=== PATIENT | male | born 1940 | race Caucasian/White ===

== ENCOUNTER 2022-01-20 14:08 | Inpatient (IN) ==
[2022-01-20] MEDS ORDERED: Iopamidol - 370 500 ML MLS IVP ONE (14:46)
[2022-01-20 15:11] LABS: Bilirubin,Urine Negative (Negative); Blood,Urine Trace-lysed (Negative); Clarity,Urine Clear (Clear); Color,Urine Yellow (Yellow); Glucose,Urine (UA) Normal (Normal); Ketones,Urine Negative (Negative); Leukocyte Esterase,Urine Negative (Negative); Nitrite,Urine Negative (Negative); Protein,Urine Negative (Neg-Trace); Urobilinogen,Urine Normal (Normal)
[2022-01-20 15:11] LABS: Eosinophils % 0.8 %; Hematocrit 30.3 % (37.5-50.1); Hemoglobin 10.6 g/dL (12.9-16.9); Immature Granulocytes % 0.4 % (0-4); Lymphocytes # 0.4 K/mcL (0.6-4.6); Lymphocytes % 8.3 %; Mean Corpuscular Hemoglobin 32.4 pg (28.0-33.3); Mean Corpuscular Volume 92.7 fL (83.0-100.0); Mean Platelet Volume 9.1 fL (9.4-12.4); Monocytes # 0.1 K/mcL (0.0-1.3); Monocytes % 1.9 %; Neutrophils # 4.7 K/mcL (1.6-8.9); Platelet Count 133 K/mcL (140-400); Red Blood Count 3.27 M/mcL (4.19-5.50); Red Cell Distribution Width 12.7 % (11.5-14.5); Segmented Neutrophils % 88.6 %; White Blood Count 5.3 K/mcL (4.3-11.1)
[2022-01-20 15:18] LABS: WBC,Urine 0-3 per hpf (0-3)
[2022-01-20 15:19] LABS: INR 1.2; Prothrombin Time 13.7 Seconds (9.4-12.1)
[2022-01-20 15:22] LABS: Activated Partial Thrombo Time 31.6 Seconds (26.0-36.0)
[2022-01-20 15:30] LABS: Alanine Aminotransferase 73 Units/L (7-52); Albumin 3.6 g/dL (3.5-5.7); Albumin/Globulin Ratio 1.4 (1.1-2.2); Alkaline Phosphatase 123 Units/L (34-104); Aspartate Amino Transferase 59 Units/L (13-39); BUN/Creatinine Ratio 16 (6-26); Blood Urea Nitrogen 55 mg/dL (8-23); Calcium 8.8 mg/dL (8.6-10.3); Carbon Dioxide 25 mEq/L (23-29); Chloride 93 mEq/L (98-107); Globulin 2.6 g/dL (2.4-3.5); Glucose 96 mg/dL (70-105); Osmolality,Calculated 281 (280-300); Potassium 3.7 mEq/L (3.5-5.1); Sodium 128 mEq/L (136-145); Total Protein 6.2 g/dL (6.4-8.9); eGFR For African Americans 20 (> 60); eGFR For Non-African Americans 17 (> 60)
[2022-01-20 15:31] LABS: Troponin I < 0.03 ng/mL (< 0.04)
[2022-01-20] MEDS ORDERED: Naloxone 0.4 MG/ML INJ IVP PRN (17:05)
[2022-01-20] MEDS ORDERED: Ondansetron 4 MG/2 ML VIAL IVP PRN (17:05)
[2022-01-20] MEDS ORDERED: Acetaminophen 325 MG TABLET PO PRN (17:05)
[2022-01-20 17:59] LABS: Calcium 8.6 mg/dL (8.6-10.3); Potassium 3.4 mEq/L (3.5-5.1)
[2022-01-20] MEDS ORDERED: cefTRIAXone 2,000 MG in 0.9 % Sodium Chloride Mini Bag 100 ML IVPB SCH (18:00)
[2022-01-20 20:24] LABS: Calcium 8.4 mg/dL (8.6-10.3); Potassium 3.8 mEq/L (3.5-5.1)
[2022-01-20] MEDS: 0.9 % Sodium Chloride 1,000 ML IVC SCH (21:34)
[2022-01-21 00:16] LABS: Calcium 8.4 mg/dL (8.6-10.3); Potassium 3.7 mEq/L (3.5-5.1)
[2022-01-21] MEDS: Levothyroxine 25 MCG TABLET PO SCH (05:54)
[2022-01-21 07:07] LABS: Hematocrit 27.3 % (37.5-50.1); Hemoglobin 9.6 g/dL (12.9-16.9); Mean Corpuscular HGB Conc 35.2 g/dL (31.6-35.5); Mean Corpuscular Hemoglobin 32.2 pg (28.0-33.3); Mean Corpuscular Volume 91.6 fL (83.0-100.0); Mean Platelet Volume 10.1 fL (9.4-12.4); Platelet Count 118 K/mcL (140-400); Red Blood Count 2.98 M/mcL (4.19-5.50); Red Cell Distribution Width 12.6 % (11.5-14.5); White Blood Count 5.5 K/mcL (4.3-11.1)
[2022-01-21 07:46] LABS: Calcium 8.2 mg/dL (8.6-10.3); Magnesium 1.8 mg/dL (1.6-2.6); Potassium 3.8 mEq/L (3.5-5.1)
[2022-01-21] MEDS: 0.9 % Sodium Chloride 1,000 ML IVC SCH (08:00)
[2022-01-21] MEDS: FLUoxetine 20 MG CAPSULE PO SCH (08:15)
[2022-01-21] MEDS ORDERED: *HR* Methotrexate 2.5 MG TABLET PO SCH (09:00)
[2022-01-21 14:00] LABS: Protein/Creatinine Ratio,Urine 0.15 mg/mg (0.00-0.20); Sodium, Urine 82.4 mEq/L
[2022-01-21] MEDS: Cefdinir 300 MG CAPSULE PO SCH (20:01)
[2022-01-21] MEDS ORDERED: cefTRIAXone 2,000 MG in 0.9 % Sodium Chloride Mini Bag 100 ML IVPB SCH (21:00)
[2022-01-21] MEDS ORDERED: 0.9 % Sodium Chloride 1,000 ML IVC SCH (23:00)
[2022-01-22 03:22] LABS: Bilirubin,Urine Negative (Negative); Blood,Urine Trace-intact (Negative); Clarity,Urine Clear (Clear); Color,Urine Yellow (Yellow); Glucose,Urine (UA) Normal (Normal); Ketones,Urine Negative (Negative); Leukocyte Esterase,Urine Negative (Negative); Nitrite,Urine Negative (Negative); Protein,Urine Negative (Neg-Trace); Specific Gravity,Urine 1.015 (1.010-1.025); Urobilinogen,Urine Normal (Normal)
[2022-01-22 04:50] LABS: Eosinophils % 0.2 %; Hematocrit 28.8 % (37.5-50.1); Hemoglobin 10.1 g/dL (12.9-16.9); Immature Granulocytes % 0.4 % (0-4); Lymphocytes # 0.3 K/mcL (0.6-4.6); Lymphocytes % 5.7 %; Mean Corpuscular HGB Conc 35.1 g/dL (31.6-35.5); Mean Corpuscular Hemoglobin 32.5 pg (28.0-33.3); Mean Corpuscular Volume 92.6 fL (83.0-100.0); Mean Platelet Volume 10.1 fL (9.4-12.4); Monocytes % 0.8 %; Neutrophils # 4.4 K/mcL (1.6-8.9); Platelet Count 117 K/mcL (140-400); Red Blood Count 3.11 M/mcL (4.19-5.50); Red Cell Distribution Width 13.1 % (11.5-14.5); Segmented Neutrophils % 92.9 %; White Blood Count 4.7 K/mcL (4.3-11.1)
[2022-01-22 05:12] LABS: Magnesium 1.6 mg/dL (1.6-2.6); Potassium 3.5 mEq/L (3.5-5.1)
[2022-01-22] MEDS: *HR* Heparin 5,000 UNIT/ML VIAL SQ SCH ×2 (05:51→17:38)
[2022-01-22] MEDS: Levothyroxine 25 MCG TABLET PO SCH (05:51)
[2022-01-22] MEDS: Metoprolol XL (24 HR) Succ 50 MG TAB.ER.24H PO SCH (08:48)
[2022-01-22] MEDS: FLUoxetine 20 MG CAPSULE PO SCH (08:49)
[2022-01-22] MEDS: Megestrol Acetate 400 MG/10 ML UDC PO SCH (13:35)
[2022-01-22] MEDS: 0.9 % Sodium Chloride 1,000 ML IVC SCH (17:39)
[2022-01-22] MEDS: Cefdinir 300 MG CAPSULE PO SCH (20:23)
[2022-01-23] MEDS: Levothyroxine 25 MCG TABLET PO SCH (05:55)
[2022-01-23] MEDS: *HR* Heparin 5,000 UNIT/ML VIAL SQ SCH ×2 (05:55→18:08)
[2022-01-23] MEDS: 0.9 % Sodium Chloride 1,000 ML IVC SCH (07:39)
[2022-01-23 07:50] LABS: Eosinophils # 0.1 K/mcL (0.0-0.6); Eosinophils % 2.2 %; Hematocrit 29.2 % (37.5-50.1); Hemoglobin 10.2 g/dL (12.9-16.9); Immature Granulocytes % 1.1 % (0-4); Lymphocytes # 0.5 K/mcL (0.6-4.6); Lymphocytes % 12.4 %; Mean Corpuscular HGB Conc 34.9 g/dL (31.6-35.5); Mean Corpuscular Hemoglobin 32.3 pg (28.0-33.3); Mean Corpuscular Volume 92.4 fL (83.0-100.0); Mean Platelet Volume 9.8 fL (9.4-12.4); Monocytes # 0.1 K/mcL (0.0-1.3); Monocytes % 1.3 %; Neutrophils # 3.1 K/mcL (1.6-8.9); Platelet Count 108 K/mcL (140-400); Red Blood Count 3.16 M/mcL (4.19-5.50); Red Cell Distribution Width 13.1 % (11.5-14.5); White Blood Count 3.7 K/mcL (4.3-11.1)
[2022-01-23 08:15] LABS: Calcium 7.8 mg/dL (8.6-10.3); Potassium 3.2 mEq/L (3.5-5.1)
[2022-01-23] MEDS: Metoprolol XL (24 HR) Succ 50 MG TAB.ER.24H PO SCH (09:12)
[2022-01-23] MEDS: FLUoxetine 20 MG CAPSULE PO SCH (09:12)
[2022-01-23] MEDS: Megestrol Acetate 400 MG/10 ML UDC PO SCH (09:13)
[2022-01-23 11:02] LABS: Platelet Estimate Slight Decrease (Normal)
[2022-01-23] MEDS: amLODIPine 5 MG TABLET PO SCH (12:30)
[2022-01-23] MEDS: Cefdinir 300 MG CAPSULE PO SCH (20:39)
[2022-01-24] MEDS: *HR* Heparin 5,000 UNIT/ML VIAL SQ SCH (05:22)
[2022-01-24] MEDS: Levothyroxine 25 MCG TABLET PO SCH (05:22)
[2022-01-24 06:19] LABS: Eosinophils # 0.1 K/mcL (0.0-0.6); Eosinophils % 1.9 %; Hematocrit 26.9 % (37.5-50.1); Hemoglobin 9.4 g/dL (12.9-16.9); Immature Granulocytes % 0.4 % (0-4); Lymphocytes # 0.4 K/mcL (0.6-4.6); Lymphocytes % 14.8 %; Mean Corpuscular HGB Conc 34.9 g/dL (31.6-35.5); Mean Corpuscular Hemoglobin 32.3 pg (28.0-33.3); Mean Corpuscular Volume 92.4 fL (83.0-100.0); Mean Platelet Volume 9.9 fL (9.4-12.4); Monocytes # 0.1 K/mcL (0.0-1.3); Monocytes % 1.9 %; Neutrophils # 2.2 K/mcL (1.6-8.9); Red Blood Count 2.91 M/mcL (4.19-5.50); Red Cell Distribution Width 13.2 % (11.5-14.5); White Blood Count 2.7 K/mcL (4.3-11.1)
[2022-01-24 06:20] LABS: Platelet Count 80 K/mcL (140-400)
[2022-01-24 06:25] VITALS: RESP 18
[2022-01-24 06:34] LABS: Calcium 7.9 mg/dL (8.6-10.3); Magnesium 1.4 mg/dL (1.6-2.6); Potassium 3.9 mEq/L (3.5-5.1)
[2022-01-24] MEDS: amLODIPine 5 MG TABLET PO SCH (08:27)
[2022-01-24] MEDS: Megestrol Acetate 400 MG/10 ML UDC PO SCH (08:27)
[2022-01-24] MEDS: Metoprolol XL (24 HR) Succ 50 MG TAB.ER.24H PO SCH (08:27)
[2022-01-24] MEDS: FLUoxetine 20 MG CAPSULE PO SCH (08:27)
[2022-01-24 09:51] LABS: Platelet Estimate Slight Decrease (Normal)
[2022-01-24] MEDS ORDERED: hydrALAZINE 25 MG TABLET PO SCH (12:00)
[2022-01-24 12:12] VITALS: BP 109/66; PULSE 60; TEMP 97.8; O2SAT 97
[2022-01-25] MEDS ORDERED: amLODIPine 5 MG TABLET PO SCH (09:00)
== END 2022-01-24 16:57 | disposition other institution (70) | DRG 683 ==
LOC: INPPIK 14:08 → EMEROOPIK 14:08 → INPPIK 18:20
PROVIDERS: ADMIT Nurse Practitioner Family; ATTEND Nurse Practitioner Family

== ENCOUNTER 2022-01-24 10:03 | Inpatient (IN) ==
[2022-01-24] MEDS ORDERED: Ondansetron 4 MG/2 ML VIAL IVP PRN (12:01)
[2022-01-24] MEDS: hydrALAZINE 25 MG TABLET PO SCH ×2 (18:24→23:43)
[2022-01-24] MEDS: Cefdinir 300 MG CAPSULE PO SCH (21:05)
[2022-01-24] MEDS: *HR* Heparin 5,000 UNIT/ML VIAL SQ SCH (21:06)
[2022-01-25] MEDS: *HR* Heparin 5,000 UNIT/ML VIAL SQ SCH ×3 (05:18→23:10)
[2022-01-25] MEDS: hydrALAZINE 25 MG TABLET PO SCH ×4 (05:19→23:11)
[2022-01-25] MEDS: Levothyroxine 25 MCG TABLET PO SCH (05:31)
[2022-01-25 07:06] LABS: Eosinophils # 0.1 K/mcL (0.0-0.6); Eosinophils % 2.8 %; Hematocrit 26.3 % (37.5-50.1); Hemoglobin 9.3 g/dL (12.9-16.9); Immature Granulocytes % 0.9 % (0-4); Lymphocytes % 13.5 %; Mean Corpuscular HGB Conc 35.4 g/dL (31.6-35.5); Mean Corpuscular Hemoglobin 32.3 pg (28.0-33.3); Mean Corpuscular Volume 91.3 fL (83.0-100.0); Mean Platelet Volume 11.2 fL (9.4-12.4); Monocytes # 0.1 K/mcL (0.0-1.3); Monocytes % 1.8 %; Red Blood Count 2.88 M/mcL (4.19-5.50); Red Cell Distribution Width 13.2 % (11.5-14.5); White Blood Count 3.3 K/mcL (4.3-11.1)
[2022-01-25 07:25] LABS: Potassium 3.4 mEq/L (3.5-5.1)
[2022-01-25 08:17] LABS: Lymphocytes # 0.5 K/mcL (0.6-4.6); Neutrophils # 2.7 K/mcL (1.6-8.9); Platelet Count 73 K/mcL (140-400)
[2022-01-25 08:20] LABS: Platelet Estimate Slight Decrease (Normal)
[2022-01-25] MEDS: Megestrol Acetate 400 MG/10 ML UDC PO SCH (10:41)
[2022-01-25] MEDS: FLUoxetine 20 MG CAPSULE PO SCH (10:42)
[2022-01-25] MEDS: Metoprolol XL (24 HR) Succ 50 MG TAB.ER.24H PO SCH (10:42)
[2022-01-25] MEDS: amLODIPine 5 MG TABLET PO SCH (10:42)
[2022-01-25] MEDS: Cefdinir 300 MG CAPSULE PO SCH (20:15)
[2022-01-26] MEDS: *HR* Heparin 5,000 UNIT/ML VIAL SQ SCH ×3 (05:23→23:04)
[2022-01-26] MEDS: Levothyroxine 25 MCG TABLET PO SCH (05:24)
[2022-01-26] MEDS: hydrALAZINE 25 MG TABLET PO SCH ×4 (05:24→23:05)
[2022-01-26] MEDS: amLODIPine 5 MG TABLET PO SCH (07:45)
[2022-01-26] MEDS: Metoprolol XL (24 HR) Succ 50 MG TAB.ER.24H PO SCH (07:45)
[2022-01-26] MEDS: FLUoxetine 20 MG CAPSULE PO SCH (07:45)
[2022-01-26] MEDS: Megestrol Acetate 400 MG/10 ML UDC PO SCH (07:45)
[2022-01-26 07:54] LABS: Eosinophils # 0.1 K/mcL (0.0-0.6); Eosinophils % 4.2 %; Hematocrit 25.2 % (37.5-50.1); Hemoglobin 8.9 g/dL (12.9-16.9); Immature Granulocytes % 0.3 % (0-4); Lymphocytes # 0.5 K/mcL (0.6-4.6); Lymphocytes % 15.9 %; Mean Corpuscular HGB Conc 35.3 g/dL (31.6-35.5); Mean Corpuscular Hemoglobin 32.2 pg (28.0-33.3); Mean Corpuscular Volume 91.3 fL (83.0-100.0); Mean Platelet Volume 10.6 fL (9.4-12.4); Monocytes # 0.1 K/mcL (0.0-1.3); Monocytes % 2.9 %; Neutrophils # 2.4 K/mcL (1.6-8.9); Red Blood Count 2.76 M/mcL (4.19-5.50); Red Cell Distribution Width 13.4 % (11.5-14.5); Segmented Neutrophils % 76.7 %; White Blood Count 3.1 K/mcL (4.3-11.1)
[2022-01-26 07:58] LABS: Platelet Count 57 K/mcL (140-400)
[2022-01-26 09:18] LABS: Calcium 7.9 mg/dL (8.6-10.3); Potassium 3.4 mEq/L (3.5-5.1)
[2022-01-27] MEDS: hydrALAZINE 25 MG TABLET PO SCH ×3 (05:13→19:53)
[2022-01-27] MEDS: *HR* Heparin 5,000 UNIT/ML VIAL SQ SCH ×2 (05:13→15:01)
[2022-01-27] MEDS: Levothyroxine 25 MCG TABLET PO SCH (05:13)
[2022-01-27 08:41] LABS: BUN/Creatinine Ratio 19 (6-26); Blood Urea Nitrogen 25 mg/dL (8-23); Calcium 8.2 mg/dL (8.6-10.3); Carbon Dioxide 21 mEq/L (23-29); Chloride 100 mEq/L (98-107); Glucose 100 mg/dL (70-105); Osmolality,Calculated 272 (280-300); Potassium 3.6 mEq/L (3.5-5.1); Sodium 129 mEq/L (136-145); eGFR For African Americans > 60 (> 60); eGFR For Non-African Americans 51 (> 60)
[2022-01-27] MEDS: Metoprolol XL (24 HR) Succ 50 MG TAB.ER.24H PO SCH (10:55)
[2022-01-27] MEDS: Megestrol Acetate 400 MG/10 ML UDC PO SCH (10:55)
[2022-01-27] MEDS: FLUoxetine 20 MG CAPSULE PO SCH (10:55)
[2022-01-27] MEDS: amLODIPine 5 MG TABLET PO SCH (10:55)
[2022-01-28] MEDS: *HR* Heparin 5,000 UNIT/ML VIAL SQ SCH ×4 (00:43→21:16)
[2022-01-28] MEDS: hydrALAZINE 25 MG TABLET PO SCH ×5 (00:43→23:24)
[2022-01-28] MEDS: Levothyroxine 25 MCG TABLET PO SCH (05:26)
[2022-01-28] MEDS: Metoprolol XL (24 HR) Succ 50 MG TAB.ER.24H PO SCH (09:42)
[2022-01-28] MEDS: Megestrol Acetate 400 MG/10 ML UDC PO SCH (09:43)
[2022-01-28] MEDS: FLUoxetine 20 MG CAPSULE PO SCH (09:43)
[2022-01-28] MEDS: amLODIPine 5 MG TABLET PO SCH (09:44)
[2022-01-29] MEDS: *HR* Heparin 5,000 UNIT/ML VIAL SQ SCH ×3 (05:22→21:32)
[2022-01-29] MEDS: Levothyroxine 25 MCG TABLET PO SCH (05:22)
[2022-01-29] MEDS: hydrALAZINE 25 MG TABLET PO SCH ×4 (05:22→23:59)
[2022-01-29] MEDS: amLODIPine 5 MG TABLET PO SCH (10:12)
[2022-01-29] MEDS: FLUoxetine 20 MG CAPSULE PO SCH (10:12)
[2022-01-29] MEDS: Metoprolol XL (24 HR) Succ 25 MG TAB.ER.24H PO SCH (10:13)
[2022-01-29] MEDS: Megestrol Acetate 400 MG/10 ML UDC PO SCH (10:13)
[2022-01-30 07:17] VITALS: O2SAT 99
[2022-01-30] MEDS: hydrALAZINE 25 MG TABLET PO SCH ×4 (07:55→23:36)
[2022-01-30] MEDS: Metoprolol XL (24 HR) Succ 25 MG TAB.ER.24H PO SCH (07:56)
[2022-01-30] MEDS: *HR* Heparin 5,000 UNIT/ML VIAL SQ SCH ×3 (07:56→21:18)
[2022-01-30] MEDS: amLODIPine 5 MG TABLET PO SCH (07:56)
[2022-01-30] MEDS: Levothyroxine 25 MCG TABLET PO SCH (07:56)
[2022-01-30] MEDS: FLUoxetine 20 MG CAPSULE PO SCH (07:56)
[2022-01-30] MEDS: Megestrol Acetate 400 MG/10 ML UDC PO SCH (08:00)
[2022-01-30 09:28] LABS: Hematocrit 27.3 % (37.5-50.1); Hemoglobin 9.4 g/dL (12.9-16.9); Mean Corpuscular HGB Conc 34.4 g/dL (31.6-35.5); Mean Corpuscular Hemoglobin 32.4 pg (28.0-33.3); Mean Corpuscular Volume 94.1 fL (83.0-100.0); Mean Platelet Volume 10.3 fL (9.4-12.4); Platelet Count 155 K/mcL (140-400); Red Cell Distribution Width 14.5 % (11.5-14.5); White Blood Count 2.9 K/mcL (4.3-11.1)
[2022-01-30 09:42] LABS: Calcium 8.6 mg/dL (8.6-10.3); Magnesium 1.5 mg/dL (1.6-2.6); Potassium 3.9 mEq/L (3.5-5.1)
[2022-01-30] MEDS: Magnesium Oxide 400 MG TABLET PO SCH (10:32)
[2022-01-31] MEDS: hydrALAZINE 25 MG TABLET PO SCH ×2 (05:27→14:18)
[2022-01-31] MEDS: *HR* Heparin 5,000 UNIT/ML VIAL SQ SCH ×2 (05:27→14:18)
[2022-01-31] MEDS: Levothyroxine 25 MCG TABLET PO SCH (05:27)
[2022-01-31 07:01] VITALS: PULSE 66; RESP 19; TEMP 98.8
[2022-01-31] MEDS: Megestrol Acetate 400 MG/10 ML UDC PO SCH (07:55)
[2022-01-31] MEDS: Metoprolol XL (24 HR) Succ 25 MG TAB.ER.24H PO SCH (07:56)
[2022-01-31] MEDS: amLODIPine 5 MG TABLET PO SCH (07:56)
[2022-01-31] MEDS: Magnesium Oxide 400 MG TABLET PO SCH (07:56)
[2022-01-31] MEDS: FLUoxetine 20 MG CAPSULE PO SCH (07:56)
[2022-01-31 07:59] VITALS: BP 138/68
== END 2022-01-31 13:05 | disposition home health service (06) | DRG 683 ==
LOC: SUATTDRO 17:36 → INPPIK 17:36
PROVIDERS: ADMIT Internal Medicine; ATTEND Family Medicine